=== PATIENT | male | born 1955 | race Caucasian/White ===

== ENCOUNTER 2017-02-02 09:54 | Emergency (ER) | payer MEDICAID, OTHER ==
[2017-02-02 10:15] VITALS: BP 113/67; PULSE 74; RESP 18; TEMP 98.4
[2017-02-02 10:19] VITALS: O2SAT 98
--- NOTE | 2017-02-02 10:53 | ED PDOC ---
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 He is able to ambulate but with limp. Denies chest pain, SOB or history of blood clots. Past Medical History Reviewed: Historical Data, Nursing Documentation, Vital Signs Vital Signs: Last Vital Signs Temp 98.4 F 02/02/17 10:14 Pulse 74 02/02/17 10:14 Resp 18 02/02/17 10:14 BP 113/67 02/02/17 10:14 Pulse Ox 98 02/02/17 10:17 - Medical History PMH: HTN - Surgical History Surgical History: No Surg Hx - Family History Family History: States: Unknown Family Hx - Living Arrangements Living Arrangements: With Family - Social History Current smoker - smoking cessation education provided: No - Home Medications Home Medications: Ambulatory Orders Medication Instructions Recorded Naproxen [Naprosyn] 500 mg PO BID PRN #14 tablet 02/02/17 - Allergies Allergies/Adverse Reactions: Allergies Allergy/AdvReac Type Severity Reaction Status Date / Time No Known Allergies Allergy Verified 02/02/17 10:17 Review of Systems ROS Statement: Except As Marked, All Systems Reviewed And Found Negative Constitutional: Negative for: Fever, Chills ENT: Negative for: Ear Discharge, Throat Pain Cardiovascular: Negative for: Chest Pain, Palpitations Respiratory: Negative for: Cough, Shortness of Breath Gastrointestinal: Negative for: Nausea, Vomiting Genitourinary Male: Negative for: Dysuria, Frequency Musculoskeletal: Positive for: Leg Pain. Negative for: Foot Pain Skin: Negative for: Rash, Jaundice Neurological: Negative for: Weakness, Numbness, Dizziness Physical Exam - Reviewed Nursing Documentation Reviewed: Yes Vital Signs Reviewed: Yes - Physical Exam Appears: Positive for: Well, Non-toxic, No Acute Distress Head Exam: Positive for: ATRAUMATIC, NORMAL INSPECTION, NORMOCEPHALIC Skin: Positive for: Normal Color, Warm, DRY Eye Exam: Positive for: EOMI, Normal appearance, PERRL ENT: Positive for: Normal ENT Inspection Neck: Positive for: Normal, Painless ROM Cardiovascular/Chest: Negative for: Tachycardia Respiratory: Negative for: Respiratory Distress Gastrointestinal/Abdominal: Positive for: Soft Extremity: Positive for: Tenderness (L thigh, L knee, 1+ pitting edema L lower leg/foot, FROM hip, mild loss active ROM L knee, no deformity) Neurologic/Psych: Positive for: Alert, Oriented - Laboratory Results Result Diagrams: 02/02/17 10:54 02/02/17 10:54 - ECG O2 Sat by Pulse Oximetry: 98 Medical Decision Making Medical Decision Making: r/o traumatic injury left leg r/o rhabdomyolysis given muscle tenderness/ edema XRay femur/knee/tib fib/ hip/pelvis negative for fracture on my prelim review, confirmed via radiologist reports labs reviewed, Total CK was normal Patient stable for DC, may need MR imaging if symptoms persist for r/o muscle/ ligament/tendon injury. Disposition - Clinical Impression Clinical Impression: Leg injury, Leg swelling - Patient ED Disposition Is Patient to be Admitted: No Counseled Patient/Family Regarding: Studies Performed, Diagnosis, Need For Followup - Disposition Referrals: Bhavik Bartlett III, MD [Staff Provider] - Disposition: Routine/Home Disposition Time: 13:00 Condition: STABLE Additional Instructions: See orthopedics if symptoms persist for further testing or treatment. Use medication only as needed, drink plenty of fluids. Use GODWIN wrap for support. Keep leg elevated when not walking. Minimize use of leg for next 10 days. Prescriptions: Naproxen [Naprosyn] 500 mg PO BID PRN #14 tablet PRN Reason: Pain, Moderate (4-7) Instructions: Leg Edema (ED), Leg Pain (ED) Print Language: KHMER
[2017-02-02 11:02] LABS: BASO # 0.1 K/uL (0.0-0.2); BASO % 0.8 % (0.0-2.0); EOS # 0.3 K/uL (0.0-0.7); HEMOGLOBIN 12.9 g/dL (12.0-18.0); LYMPH # 2.1 K/uL (1.0-4.3); LYMPH % 23.6 % (20.0-40.0); MEAN CELL VOLUME 87.7 fl (80.0-94.0); MEAN CORPUSCULAR HEMOGLOBIN 31.3 pg (27.0-31.0); MEAN CORPUSCULAR HGB CONC 35.7 g/dL (33.0-37.0); MEAN PLATELET VOLUME 8.6 fl (7.2-11.7); MONO # 0.6 K/uL (0.0-0.8); MONO % 6.6 % (0.0-10.0); NEUT # 5.7 K/uL (1.8-7.0); PLATELET COUNT 162 K/uL (130-400); RBC 4.13 Mil/uL (4.40-5.90); RED CELL DISTRIBUTION WIDTH 14.4 % (11.5-14.5); WHITE BLOOD COUNT 8.7 K/uL (4.8-10.8)
[2017-02-02 11:24] LABS: BLOOD UREA NITROGEN 19 mg/dl (9-20); GFR AFRICAN-AMERICAN > 60; GFR NON-AFRICAN AMERICAN > 60
[2017-02-02 12:01] LABS: BANDS 2 % (0-2); BASOPHIL 1 % (0-2); EOSINOPHIL 4 % (0-7); LYMPHOCYTE 19 % (20-50); METAMYELOCYTE 1 % (0-0); MONOCYTE 5 % (0-10); MYELOCYTE 2 % (0-0); NEUTROPHIL 66 % (42-75); PLATELET ESTIMATE NORMAL (NORMAL); TOTAL CELLS COUNTED 100
[2017-02-02 12:03] LABS: ANISOCYTOSIS SLIGHT; LARGE PLATELETS PRESENT
--- NOTE | 2017-02-02 12:34 | RAD ---
PROCEDURE: Left Knee Radiographs. HISTORY: Pain. COMPARISON: None. FINDINGS: BONES: Bone alignment and mineralization are normal. There is no acute fracture or bone destruction. JOINTS: Normal. No osteoarthritis. JOINT EFFUSION: There is a moderate suprapatellar joint effusion. OTHER FINDINGS: None. IMPRESSION: No acute fracture or dislocation. Moderate suprapatellar joint effusion.
--- NOTE | 2017-02-02 12:34 | RAD ---
PROCEDURE: Radiographs of the left tibia and fibula. HISTORY: fall L leg pain COMPARISON: None available. TECHNIQUE: Frontal and lateral views obtained. FINDINGS: BONES: No acute fracture or bone destruction. Bone alignment and mineralization are normal. JOINT SPACES: Unremarkable. OTHER FINDINGS: None. IMPRESSION: No acute displaced fracture.
--- NOTE | 2017-02-02 12:38 | RAD ---
PROCEDURE: Left Femur Radiographs. HISTORY: Fall, left leg pain COMPARISON: None. TECHNIQUE: AP and Lateral Radiographs of the left femur. FINDINGS: FEMUR: Bone alignment and mineralization are normal. There is no acute fracture or bone destruction. SOFT TISSUES: Normal. OTHER FINDINGS: None. IMPRESSION: No acute fracture or bone destruction.
--- NOTE | 2017-02-02 12:41 | RAD ---
PROCEDURE: Pelvis and left hip radiographs INDICATION: COMPARISON: None. FINDINGS: AP view of the pelvis and frog lateral view of the left hip were obtained. There is no evidence of fracture, dislocation or other significant bony abnormality. The hip joint spaces and sacroiliac joints are well maintained. Bone mineralization is normal. The visualized soft tissues are unremarkable. IMPRESSION: No acute fracture or dislocation.Please note occult fractures cannot be excluded on plain radiographs. If there is a persistent clinical concern, an MRI of the hip may be performed for further evaluation.
--- NOTE | 2017-02-02 12:46 | US ---
HISTORY: L leg pain, swelling . PRIORS: None. FINDINGS: 2-D, color and duplex Doppler analysis of the lower extremity venous circulation using routine protocol from the femoral veins through the popliteal veins. Venous compressibility: Normal. Flow and augmentation patterns: Normal. Visualized veins upper third of calf: Normal. Whittaker cyst: None. IMPRESSION: No sonographic or Doppler evidence for DVT in left lower extremity.
== END 2017-02-02 13:49 | disposition home or self-care (01) ==
LOC: H.ER 09:54
DX: S99.922A Unspecified injury of left foot, initial encounter (principal); W19.XXXA Unspecified fall, initial encounter

== ENCOUNTER 2018-05-18 01:32 | Emergency (ER) | payer MEDICAID ==
[2018-05-18 01:50] VITALS: RESP 18; TEMP 97.9; O2SAT 94
[2018-05-18 02:56] LABS: BASO % 0.6 % (0.0-2.0); EOS # 0.1 K/uL (0.0-0.7); EOS % 1.3 % (0.0-4.0); HEMOGLOBIN 11.5 g/dL (12.0-18.0); LYMPH # 0.9 K/uL (1.0-4.3); LYMPH % 11.7 % (20.0-40.0); MEAN CELL VOLUME 93.9 fl (80.0-94.0); MEAN CORPUSCULAR HEMOGLOBIN 33.4 pg (27.0-31.0); MEAN CORPUSCULAR HGB CONC 35.5 g/dL (33.0-37.0); MEAN PLATELET VOLUME 8.2 fl (7.2-11.7); MONO # 0.6 K/uL (0.0-0.8); MONO % 7.3 % (0.0-10.0); NEUT # 6.3 K/uL (1.8-7.0); NEUT % 79.1 % (50.0-75.0); RBC 3.45 Mil/uL (4.40-5.90); RED CELL DISTRIBUTION WIDTH 17.1 % (11.5-14.5)
[2018-05-18 03:17] LABS: ALB/GLOB RATIO 1.1 (1.0-2.1); ALBUMIN 3.4 g/dL (3.5-5.0); ALT/SGPT 42 U/L (21-72); AST/SGOT 21 U/L (17-59); BLOOD UREA NITROGEN 16 mg/dl (9-20); CALCIUM 8.7 mg/dL (8.4-10.2); GFR NON-AFRICAN AMERICAN > 60; LIPASE 175 U/L (23-300)
[2018-05-18] MEDS ORDERED: Sodium Chloride 0.9% 1,000 ML IV STA (03:21)
[2018-05-18] MEDS ORDERED: Insulin Regular 100 units/ml IV STA (03:21)
--- NOTE | 2018-05-18 03:21 | ED PDOC ---
HPI: Abdomen Time Seen by Provider: 05/18/18 02:02 Chief Complaint (Nursing): Abdominal Pain Chief Complaint (Provider): Abdominal Pain History Per: Patient History/Exam Limitations: no limitations Onset/Duration Of Symptoms: Hrs (x3) Current Symptoms Are (Timing): Still Present Location Of Pain/Discomfort: RUQ Additional Complaint(s): 63 year old male with a history of squamous skin cancer presents to the ED with severe RUQ pain that started at midnight. At first, pain was severe then slowly pain diminished and currently is almost gone. He denies fever, chills, vomiting or diarrhea. Patient thought he initially strained his side while sleeping. His cancer has possibly metastasized to his liver, he is currently on chemotherapy and his last treatment was three days ago. Patient sees Dr. Veronica in [place] for his cancer. PMD: unknown Past Medical History Reviewed: Historical Data, Nursing Documentation, Vital Signs Vital Signs: Last Vital Signs Temp 97.9 F 05/18/18 01:36 Pulse 85 05/18/18 01:36 Resp 18 05/18/18 01:36 BP 111/77 05/18/18 01:36 Pulse Ox 94 L 05/18/18 01:36 - Medical History PMH: Diabetes, HTN Other PMH: squamous skin cancer - Surgical History Surgical History: No Surg Hx - Family History Family History: States: Unknown Family Hx - Home Medications Home Medications: Ambulatory Orders Medication Instructions Recorded Naproxen [Naprosyn] 500 mg PO BID PRN #14 tablet 02/02/17 - Allergies Allergies/Adverse Reactions: Allergies Allergy/AdvReac Type Severity Reaction Status Date / Time No Known Allergies Allergy Verified 05/18/18 01:36 Review of Systems ROS Statement: Except As Marked, All Systems Reviewed And Found Negative Constitutional: Negative for: Fever, Chills Gastrointestinal: Positive for: Abdominal Pain (RUQ). Negative for: Vomiting, Diarrhea Physical Exam - Reviewed Nursing Documentation Reviewed: Yes Vital Signs Reviewed: Yes - Physical Exam Appears: Positive for: Non-toxic, No Acute Distress Head Exam: Positive for: ATRAUMATIC, NORMOCEPHALIC Skin: Positive for: Normal Color, Warm, Dry Eye Exam: Positive for: Normal appearance Neck: Positive for: Normal Cardiovascular/Chest: Positive for: Regular Rate, Rhythm. Negative for: Murmur Respiratory: Positive for: Normal Breath Sounds. Negative for: Respiratory Distress Gastrointestinal/Abdominal: Positive for: Normal Exam, Soft. Negative for: Tenderness Back: Positive for: Normal Inspection Extremity: Positive for: Normal ROM. Negative for: Pedal Edema, Deformity Neurologic/Psych: Positive for: Alert, Oriented (x3). Negative for: Motor/Sensory Deficits - Laboratory Results Result Diagrams: 05/18/18 02:51 05/18/18 02:51 - ECG O2 Sat by Pulse Oximetry: 94 (RA) Pulse Ox Interpretation: Normal - CT Scan/US CT abdomen Other Rad Studies (CT/US): Read By Radiologist Other Rad Interpretation: no acute findings - Progress Re-evaluation Time: 05:00 Condition: Re-examined, Improved Medical Decision Making Medical Decision Making: Time: 230 Initial Impression: RUQ abdominal pain Differential diagnoses include but are not limited to: Gall bladder disease, kidney stones, musculoskeletal pain, intraabdominal bleeding Initial Plan: --CT abd and pelvis --CMP --Lipase --Urine dip --CBC with differentials Scribe Attestation: Documented by Renu Riddle, acting as a scribe for Cait Samuels MD Provider Scribe Attestation: All medical record entries made by the Scribe were at my direction and persona lly dictated by me. I have reviewed the chart and agree that the record accurately reflects my personal performance of the history, physical exam, medical decision making, and the department course for this patient. I have also personally directed, reviewed, and agree with the discharge instructions and disposition. Disposition - Clinical Impression Clinical Impression: Abdominal pain, Hyperglycemia - Patient ED Disposition Is Patient to be Admitted: No Doctor Will See Patient In The: Office Counseled Patient/Family Regarding: Studies Performed, Diagnosis, Need For Followup - Disposition Disposition: Routine/Home Disposition Time: 05:28 Condition: GOOD Additional Instructions: NERISSA ROWE, thank you for letting us take care of you today. Your provider was Cait Samuels MD and you were treated for ABD PAIN. The emergency medical care you received today was directed at your acute symptoms. If you were prescr ibed any medication, please fill it and take as directed. It may take several days for your symptoms to resolve. Return to the Emergency Department if your symptoms worsen, do not improve, or if you have any other problems. Please contact your doctor or call one of the physicians/clinics you have been referred to that are listed on the Patient Visit Information form that is included in your discharge packet. Bring any paperwork you were given at discharge with you along with any medications you are taking to your follow up visit. Our treatment cannot replace ongoing medical care by a primary care provider outside of the emergency department. Thank you for allowing the [facility] team to be part of your care today. If you had an X-Ray or CT scan: A Radiologist will review the ED reading if any change in treatment is needed we will contact you. If you had a blood, urine, or wound culture: It will take several days for the results, if any change in treatment is needed we will contact you. If you had an STI test: It will take 48 hours for the results. Please call after 1 week if you have not heard back. Instructions: Acute Abdomen (Belly Pain), Hyperglycemia, Adult (DC)
[2018-05-18] MEDS ORDERED: Iohexol 300 100 ML IJ ONE (03:23)
[2018-05-18] MEDS ORDERED: Sodium Chloride 0.9% 50 ML IV ONE (03:24)
[2018-05-18] MEDS ORDERED: Insulin Regular 100 units/ml ONE ×2 (03:27→03:28)
[2018-05-18 05:50] VITALS: BP 116/67; PULSE 78
--- NOTE | 2018-05-18 21:00 | CT ---
Date of service: 05/18/2018 PROCEDURE: CT Abdomen and Pelvis with contrast HISTORY: ruq pain hx of liver mass COMPARISON: Comparison is made with the previous study dated 08/14/2017 TECHNIQUE: Contrast dose: 0 Axial and reformatted coronal and sagittal CT images of the abdomen and pelvis were obtained after IV contrast administration. Radiation dose: Total exam DLP = 550.81 mGy-cm. This CT exam was performed using one or more of the following dose reduction techniques: Automated exposure control, adjustment of the mA and/or kV according to patient size, and/or use of iterative reconstruction technique. FINDINGS: LOWER THORAX: Small opacities at the lung bases noted. There is a small right and trace left pleural effusions seen. LIVER: There are at least 2 low-attenuation lesions in the liver. The largest lesion is seen adjacent to the gallbladder fossa and the right liver lobe contains small focal calcification. There is a trace perihepatic fluid. There is hepatic capsular retraction adjacent to the right liver lobe lesion. The portal vein is patent. GALLBLADDER AND BILE DUCTS: The gallbladder is distended demonstrate moderate diffuse wall thickening. Correlate clinically for acute cholecystitis. If indicated further assessment by ultrasound is suggested. PANCREAS: Unremarkable. No gross lesion or ductal dilatation. SPLEEN: Unremarkable. ADRENALS: Unremarkable. No mass. KIDNEYS AND URETERS: Unremarkable. No hydronephrosis. No solid mass. VASCULATURE: Unremarkable. No aortic aneurysm. BOWEL: Scattered colonic diverticulosis are noted without evidence of diverticulitis. No obstruction. No gross mural thickening. Mild constipation is noted. APPENDIX: No evidence of appendicitis. PERITONEUM: Unremarkable. No free fluid. No free air. LYMPH NODES: Unremarkable. No enlarged lymph nodes. BLADDER: Mild urinary bladder wall thickening. REPRODUCTIVE: The prostate and the seminal vesicles are mildly enlarged. BONES: No acute fracture. OTHER FINDINGS: None. IMPRESSION: Small bilateral pleural effusion associated with bibasilar atelectasis. Redemonstration of liver lesions with possible post treatment changes. Small amount of perihepatic fluid and fat stranding noted. Distended gallbladder demonstrate diffuse wall thickening. Clinical correlation for acute cholecystitis and if indicated further assessment by ultrasound is suggested. Preliminary report was submitted by [facility]
== END 2018-05-18 05:50 | disposition home or self-care (01) ==
LOC: H.ER 01:32
DX: R10.11 Right upper quadrant pain (principal); E11.65 Type 2 diabetes mellitus with hyperglycemia; I10 Essential (primary) hypertension; K76.9 Liver disease, unspecified; Z85.828 Personal history of other malignant neoplasm of skin
CPT/HCPCS: 74177; 80053; 82948; 83690; 85025; 96360; 99283; J7030; Q9967